=== PATIENT | male | born 1980 | race Caucasian/White ===

== ENCOUNTER 2020-03-17 14:21 | Emergency (ER) | payer OTHER ==
[2020-03-17] MEDS ORDERED: CHERRY SYRUP 10 ML UDC PO ONE (14:57)
[2020-03-17] MEDS ORDERED: KETOROLAC 60 MG/2 ML VIAL IM STA (14:57)
[2020-03-17] MEDS ORDERED: DEXAMETHASONE 10 MG/ML VIAL PO STA (14:57)
--- NOTE | 2020-03-17 15:04 | ED Physician Documentation ---
PD HPI HEADACHE - Stated complaint Stated Complaint: HEADACHE - Chief complaint Chief Complaint: General - History obtained from History obtained from: Patient - History of Present Illness Timing - onset: How many days ago (5) Timing - onset during: Rest Timing - duration: Days (5) Timing - details: Gradual onset, Still present Location: Front, Back, Left Quality: Throbbing Associated symptoms: No: Fever, Stiff neck, Nausea, Vomiting, Weakness, Numbn ess, Syncope, Seizure, Eye pain, Vision changes Improved by: Rest Worsened by: Light, Noise, Moving Contributing factors: No: Anticoagulated Similar symptoms before: No diagnosis Recently seen: Not recently seen - Additional information Additional information: 39 y/o male with a headache starting 5 days ago has been in to see the dentist last week to have a tooth pulled and he went to his doctor and had an MMR vaccine given. He has developed a headache on the left side more than the right and occipital radiating to the front. He has some ringing in his ears as well but no sore throat and no cough. He is on some amoxicillin after having the tooth pulled. He has not had vomiting or photo phobia and he has not had fever. Review of Systems Constitutional: denies: Fever Eyes: denies: Decreased vision Ears: reports: Tinnitus/ringing. denies: Ear pain Nose: reports: Congestion. denies: Rhinorrhea / runny nose Throat: denies: Sore throat Cardiac: denies: Chest pain / pressure, Palpitations Respiratory: denies: Dyspnea, Cough GI: denies: Abdominal Pain, Nausea, Vomiting : denies: Dysuria, Frequency Skin: denies: Rash Musculoskeletal: denies: Neck pain, Back pain, Extremity pain Neurologic: reports: Headache. denies: Generalized weakness, Focal weakness, Numbness, Head injury, LOC PD PAST MEDICAL HISTORY - Past Medical History Cardiovascular: None Respiratory: None Neuro: None Endocrine/Autoimmune: None GI: GERD : None HEENT: None Psych: None Musculoskeletal: None Derm: None - Past Surgical History Past Surgical History: Yes - Present Medications Home Medications: Ambulatory Orders Medication Instructions Recorded Confirmed Azithromycin [Zithromax] 250 mg PO DAILY #6 tablet 03/17/20 - Allergies Allergies/Adverse Reactions: Allergies Allergy/AdvReac Type Severity Reaction Status Date / Time Penicillins Allergy Rash Verified 03/17/20 14:31 - Social History Does the pt smoke?: No Smoking Status: Never smoker Does the pt drink ETOH?: No Does the pt have substance abuse?: No - Immunizations Immunizations are current?: Yes PD ED PE NORMAL - Vitals Vital signs reviewed: Yes (hypertensive) - General General: Alert and oriented X 3, No acute distress, Well developed/nourished - HEENT HEENT: Atraumatic, PERRL, EOMI, Other (both TM's are erythematous with distortion of the landmarks. The pharynx is without exudate. The serviced tooth site on the left upper incisor appears without inflamation. ) - Neck Neck: Supple, no meningeal sign, No bony TTP, Other (tenderness to the occiput at the insertion of the trapezius. ) - Cardiac Cardiac: RRR, No murmur - Respiratory Respiratory: No respiratory distress, Clear bilaterally - Abdomen Abdomen: Soft, Non tender - Back Back: No CVA TTP, No spinal TTP - Derm Derm: Normal color, Warm and dry, No rash - Extremities Extremities: No deformity, No edema - Neuro Neuro: Alert and oriented X 3, neurology tech 2-12 intact, No motor deficit, No sensory deficit, Normal speech Eye Opening: Spontaneous Motor: Obeys Commands Verbal: Oriented GCS Score: 15 - Psych Psych: Normal mood, Normal affect Results - Vitals Vitals: Vital Signs - 24 hr 03/17/20 14:27 Temperature 36.2 C L Heart Rate 84 Respiratory 16 Rate Blood Pressure 132/81 H O2 Saturation 97 Oxygen O2 Source Room air PD MEDICAL DECISION MAKING - ED course Complexity details: reviewed results, re-evaluated patient, considered differential, d/w patient ED course: 39 y/o male just back from the dentist on amoxicillin has developed a headache and has tenderness in the trapezius at the insertion to the occiput and otitis on exam. He is administered IM toradal and PO decadron and we will change his antibiotic to zithromax. Departure - Departure Disposition: 01 Home, Self Care Clinical Impression: Tension headache Otitis media Qualifiers: Otitis media type: suppurative Chronicity: acute Laterality: bilateral Recurrence: non-recurrent Spontaneous tympanic membrane rupture: without spontaneous rupture Qualified Code(s): H66.003 - Acute suppurative otitis media without spontaneous rupture of ear drum, bilateral Condition: Stable Instructions: ED Otitis Media Acute Adult, ED Headache Tension Follow-Up: MARCELO Bertrand [Provider Group] Prescriptions: Azithromycin [Zithromax] 250 mg PO DAILY #6 tablet
[2020-03-17 15:18] VITALS: BP 135/89
== END 2020-03-17 15:17 | disposition home or self-care (01) ==
LOC: ED 14:21
DX: G44.209 Tension-type headache, unspecified, not intractable (principal); H66.003 Acute suppurative otitis media without spontaneous rupture of ear drum, bilateral; M54.2 Cervicalgia
CPT/HCPCS: 96372; 99283; 99284; A9270

== ENCOUNTER 2020-10-27 03:11 | Emergency (ER) | payer OTHER ==
[2020-10-27] MEDS ORDERED: ASPIRIN CHEW 81 MG TABLET PO STA (03:36)
--- NOTE | 2020-10-27 03:42 | ED Physician Documentation ---
History of Present Illness - Stated complaint Stated Complaint: CHEST PX, L ARM NUMB, LEGS SWOLLEN - Chief complaint Chief Complaint: Cardiac - History obtained from History obtained from: Patient, Family (significant other) - Additonal information Additional information: 40yM with pmh gerd and sciatica, p/w chest pain gradual onset while driving from [place] around 1am. chest pain is constant, aching, currently 7/10, worse with pressing on it, moving the shoulder, and with deep breathing, located in the L pectoral region, radiating to the L axilla and shoulder, a/w tingling down the L arm. Patient was sleeping in the car on and off but denies sleeping on the arm. denies cough, shortness of breath, fever. Patient and his partner also endorse migratory joint swelling and pain over the past couple days. He had bilateral ankle swelling that has now gone down and now his bilateral wrists and ankle joints are hurting him, worse on the left versus right. He also is having subjective L hand swelling. denies calf pain or history of clots. He is however on testosterone supplementation. strong FH of gout. +smoker, +FH [place] <65 in grandmother, FH diabetes in both parents Review of Systems Ten Systems: 10 systems reviewed and negative Constitutional: denies: Fever, Chills Cardiac: reports: Chest pain / pressure. denies: Palpitations Respiratory: denies: Dyspnea, Cough GI: denies: Nausea Musculoskeletal: reports: Extremity pain, Joint pain, Extremity swelling PD PAST MEDICAL HISTORY - Past Medical History Past Medical History: Yes Cardiovascular: None Respiratory: None Neuro: None Endocrine/Autoimmune: None GI: GERD : Other HEENT: None Psych: None Musculoskeletal: None Derm: None Other Past Medical History: R hip sciatica, chronic - Past Surgical History Past Surgical History: Yes - Present Medications Home Medications: Ambulatory Orders Medication Instructions Recorded Confirmed Meloxicam [Mobic] 15 mg PO DAILY 10/27/20 10/27/20 Omeprazole [PriLOSEC] 20 mg PO DAILY 10/27/20 10/27/20 - Allergies Allergies/Adverse Reactions: Allergies Allergy/AdvReac Type Severity Reaction Status Date / Time Penicillins Allergy Rash Verified 10/27/20 03:26 - Social History Does the pt smoke?: Yes Smoking Status: Current every day smoker Does the pt drink ETOH?: No Does the pt have substance abuse?: No - Immunizations Immunizations are current?: Yes - POLST Patient has POLST: No PD ED PE NORMAL - Vitals Vital signs reviewed: Yes - General General: Alert and oriented X 3, No acute distress, Well developed/nourished - HEENT HEENT: Atraumatic, PERRL, EOMI - Neck Neck: Supple, no meningeal sign - Cardiac Cardiac: RRR - Respiratory Respiratory: No respiratory distress, Clear bilaterally - Abdomen Abdomen: Non tender, Non distended - Derm Derm: Normal color - Extremities Extremities: No deformity, Other (2+ BL radial and DP pulses. normal sensation and cap refill. minimal swelling discernable to wrist and MCP joints of L hand) - Neuro Neuro: Alert and oriented X 3 - Psych Psych: Normal mood, Normal affect Results - Vitals Vitals: Vital Signs - 24 hr 10/27/20 10/27/20 10/27/20 03:15 03:30 03:50 Temperature 36.5 C Heart Rate 71 68 70 Respiratory 18 18 18 Rate Blood Pressure 134/86 H 124/83 H 124/83 H O2 Saturation 100 98 97 10/27/20 10/27/20 10/27/20 04:24 04:30 05:00 Temperature Heart Rate 69 66 70 Respiratory 15 18 18 Rate Blood Pressure 113/83 H 110/77 116/74 O2 Saturation 98 97 97 Oxygen O2 Source Room air - Labs Labs: Laboratory Tests 10/27/20 10/27/20 10/27/20 03:34 03:34 03:34 WBC 6.0 RBC 4.89 Hgb 13.4 L Hct 39.1 L MCV 80.0 MCH 27.4 MCHC 34.3 RDW 12.3 Plt Count 190 MPV 11.2 Neut # (Auto) 3.2 Lymph # (Auto) 2.3 [place] # (Auto) 0.4 Eos # (Auto) 0.1 Baso # (Auto) 0.0 Absolute Nucleated RBC 0.00 Nucleated RBC % 0.0 ESR D-Dimer Sodium 136 Potassium 3.6 Chloride 100 L Carbon Dioxide 27 Anion Gap 9.0 BUN 18 Creatinine 1.0 Estimated GFR (MDRD) 84 L Glucose 110 H Uric Acid 5.8 Calcium 8.9 Total Bilirubin 0.4 AST 21 ALT 31 Alkaline Phosphatase 86 Troponin I High Sens 4.3 C-Reactive Protein 2.6 H Total Protein 6.8 Albumin 4.4 Globulin 2.4 Albumin/Globulin Ratio 1.8 Lipase 48 10/27/20 10/27/20 03:34 03:34 WBC RBC Hgb Hct MCV MCH MCHC RDW Plt Count MPV Neut # (Auto) Lymph # (Auto) [place] # (Auto) Eos # (Auto) Baso # (Auto) Absolute Nucleated RBC Nucleated RBC % ESR 5 D-Dimer TNP Sodium Potassium Chloride Carbon Dioxide Anion Gap BUN Creatinine Estimated GFR (MDRD) Glucose Uric Acid Calcium Total Bilirubin AST ALT Alkaline Phosphatase Troponin I High Sens C-Reactive Protein Total Protein Albumin Globulin Albumin/Globulin Ratio Lipase PD MEDICAL DECISION MAKING - ED course ED course: 40yM p/w atypical chest pain, found to have S1Q3T3 on ekg. He is resting comfortably in NAD, with normal vitals. BP is the same on both arms. will obtain trop, dimer to eval further, as well as inflammatory markers given his apparent migratory arthritis symptoms. 4:15am - laboratory was unable to run d-dimer since sample was extremely lipemic. Will obtain CTA chest to r/o PE. d/w patient. He states he has not seen a doctor in over a year and does not know the last time he had cholesterol tests. Pain resolved s/p aspirin. d/w the patient and his SO in regards to CT incidental nodule and otherwise negative findings. will send GC test since he has not had recent testing and we need to r/o gonorrheal arthritis. discussed that he should f/u with his pmd for possible stress testing and will definitely need lipid panel done. return precautions given. Departure - Departure Disposition: 01 Home, Self Care Clinical Impression: Chest pain, Joint pain Condition: Good Instructions: ED Chest Pain Atypical Unkn Cause Comments: You were seen in the emergency department for chest pain and joint pains. Your lab work is showing that your cholesterol is likely very high. You need to get repeat lipid testing with your primary doctor. Your CT showed and showed a lung nodule, which will require follow-up CT imaging. You should follow this up with your doctor as well. Finally, your EKG did not show signs of a heart attack, nor did your blood work, but you will likely need outpatient stress test to investigate your heart more. Return to the emergency department if you have any new or worsening symptoms, significant weight loss, unexplained symptoms or other concerns. Forms: Activity restrictions
[2020-10-27 03:44] LABS: BASOPHILS % (AUTO) 0.5 %; EOSINOPHILS # (AUTO) 0.1 10^3/uL (0.0-0.7); HCT - HEMATOCRIT 39.1 % (42.0-52.0); HGB - HEMOGLOBIN 13.4 g/dL (14.0-18.0); LYMPHOCYTES # (AUTO) 2.3 10^3/uL (1.5-3.5); LYMPHOCYTES % (AUTO) 37.5 %; MEAN CORPUSCULAR HEMOGLOBIN 27.4 pg (27.0-31.0); MEAN CORPUSCULAR HGB CONC 34.3 g/dL (32.0-36.0); MEAN PLATELET VOLUME 11.2 fL (7.4-11.4); MONOCYTES # (AUTO) 0.4 10^3/uL (0.0-1.0); MONOCYTES % (AUTO) 6.6 %; NEUTROPHILS # (AUTO) 3.2 10^3/uL (1.5-6.6); NEUTROPHILS % (AUTO) 53.1 %; PLT - PLATELET COUNT 190 10^3/uL (130-450); RED BLOOD COUNT 4.89 10^6/uL (4.70-6.10); RED CELL DISTRIBUTION WIDTH 12.3 % (12.0-15.0)
[2020-10-27] MEDS ORDERED: IOVERSOL 320 100 ML VIAL IVP ONE ×2 (04:21→04:59)
[2020-10-27 04:24] LABS: ALBUMIN 4.4 g/dL (3.2-5.5); ALBUMIN/GLOBULIN RATIO 1.8 (1.0-2.2); BILIRUBIN,TOTAL 0.4 mg/dL (0.2-1.0); CALCIUM 8.9 mg/dL (8.5-10.3); CRP - C-REACTIVE PROTEIN 2.6 mg/dL (0-1.0); POTASSIUM 3.6 mmol/L (3.5-5.0); TOTAL PROTEIN 6.8 g/dL (6.7-8.2); URIC ACID 5.8 mg/dL (2.6-7.2)
[2020-10-27 06:08] VITALS: BP 116/72
--- NOTE | 2020-10-27 08:18 | XRAY Report ---
PROCEDURE: Chest 1 View X-Ray INDICATIONS: Chest Pain TECHNIQUE: One view of the chest was acquired. COMPARISON: 06/07/2019 FINDINGS: Surgical changes and devices: None. Lungs and pleura: No pleural effusions or pneumothorax. Lungs are clear. Mediastinum: Mediastinal contours appear normal. Heart size is normal. Bones and chest wall: No suspicious bony lesions. Overlying soft tissues appear unremarkable. IMPRESSION: No acute cardiopulmonary abnormality Reviewed by: Jm Bustillo on 10/27/2020 8:16 AM PDT Approved by: Jm Bustillo on 10/27/2020 8:16 AM PDT Station ID: [id number]
--- NOTE | 2020-10-27 08:21 | CT Report ---
PROCEDURE: ANGIO CHEST W/WO INDICATIONS: pleuritic chest pain, on steroids CONTRAST: IV CONTRAST: Optiray 320 ml: 100 PO CONTRAST: *NO PO CONTRAST TECHNIQUE: After the administration of intravenous contrast, 2 mm thick sections acquired from the pulmonary api dmitriy to the posterior costophrenic angles. 3-dimensional maximum intensity projection (MIP) coronal a nd sagittal reformats were then acquired through the thorax. For radiation dose reduction, the follow ing was used: automated exposure control, adjustment of mA and/or kV according to patient size. COMPARISON: None FINDINGS: Image quality: Excellent. Pulmonary arteries: Pulmonary arteries are normal in size, and demonstrate no intraluminal filling d efects to suggest central pulmonary embolism. Lungs and pleura: Lungs are clear. No pleural effusions or pneumothorax. Central and peripheral ai rways are patent. Mediastinum: Heart size is normal, without pericardial effusion. No mediastinal or hilar adenopathy . Thoracic aorta is normal in caliber and enhancement. Esophagus is normal in caliber, without hiat al hernia. Bones and chest wall: No suspicious bony lesions. Ribs and thoracic spine appear intact throughout. No axillary or supraclavicular adenopathy. The thyroid is normal in size and there are no incident al findings. Abdomen: Visualized upper abdominal solid organs appear normal in the early arterial phase of enhanc ement. IMPRESSION: 1. No pulmonary embolism. 2. 5 mm nodule in the right middle lobe. This is an incidentally detected pulmonary nodule. Guideline s for the follow-up and management of indeterminate pulmonary nodules 4 to 6 mm in diameter in patien ts greater than 34 years old: In low risk patients, follow-up CT at 12 months; if unchanged no furthe r follow-up needed. In high-risk patients, initial follow-up CT at 6-12 months, then 18-24 months if no change. Reviewed by: Jm Bustillo on 10/27/2020 8:20 AM PDT Approved by: Jm Bustillo on 10/27/2020 8:20 AM PDT Station ID: [id number]
[2020-10-27 16:50] LABS: CHLAMYDIA TRACHOMATIS DNA NEGATIVE (NEGATIVE)
[2020-10-27 16:51] LABS: NEISSERIA GONORRHOEAE DNA NEGATIVE (NEGATIVE)
== END 2020-10-27 06:12 | disposition home or self-care (01) ==
LOC: ED 03:11
DX: R07.89 Other chest pain (principal); R94.31 Abnormal electrocardiogram [ECG] [EKG]; R91.1 Solitary pulmonary nodule; E78.00 Pure hypercholesterolemia, unspecified; M25.531 Pain in right wrist; M25.532 Pain in left wrist; M25.571 Pain in right ankle and joints of right foot; M25.572 Pain in left ankle and joints of left foot; M54.31 Sciatica, right side; K21.9 Gastro-esophageal reflux disease without esophagitis; F17.200 Nicotine dependence, unspecified, uncomplicated; Z82.49 Family history of ischemic heart disease and other diseases of the circulatory system; Z83.3 Family history of diabetes mellitus
CPT/HCPCS: 36415; 71045; 71275; 80053; 83690; 84484; 84550; 85025; 85651; 86140; 87491; 87591; 93005; 99284; A9270; Q9967; 85379; 87661

== ENCOUNTER 2020-12-11 08:03 | Outpatient (CLI) | payer OTHER ==
--- NOTE | 2020-12-11 16:48 | MRI Report ---
PROCEDURE: Lumbar Spine W/O INDICATIONS: LUMBAR RADICULOPATHY TECHNIQUE: Noncontrast sagittal T1 spin echo and T2 fast echo, sagittal STIR, axial T1 and T2 fast spin echo thr ough the lumbar spine. In cases with scoliosis, additional coronal T2 fast spin echo may be performe d. COMPARISON: None. FINDINGS: Image quality: Excellent. Alignment and Curvature: There is normal bony alignment. Bone Marrow: Marrow is of normal overall signal. No acute vertebral body compression fractures. Spinal Cord: Conus medullaris terminates at the L1 level. Visualized cord demonstrates normal signa l . There is an appearance of congenital spinal stenosis. Paraspinous Soft Tissues: No paravertebral masses. Discs: Moderate dessication is present at L2-3, minimal throughout the remainder of the lumbar spine . L1-L2: Minimal disc bulge with mild spinal stenosis. No foraminal narrowing. L2-L3: Mild disc bulge with moderate to severe spinal stenosis. Mild to moderate left and mild ri ght foraminal narrowing. Facet and ligamentum flavum hypertrophy are present. L3-L4: Mild disc bulge with moderate spinal stenosis. No foraminal narrowing. Mild facet and ligame ntum flavum hypertrophy. L4-L5: Mild disc bulge with moderate spinal stenosis. No foraminal narrowing. Facet and ligamentum flavum hypertrophy are present. L5-S1: No disc bulge is present. Mild spinal stenosis. No foraminal narrowing. Mild facet and ligam entum flavum hypertrophy. IMPRESSION: 1. Multilevel spinal stenosis most severe at L2-3 secondary to disc bulge with contributing effect of facet/ligament of flavum arthropathy. In addition, congenital spinal stenosis is noted. 2. Mild to moderate foraminal narrowing at L2-3 secondary to facet arthropathy. Reviewed by: Samia Upton MD on 12/11/2020 4:47 PM PDT Approved by: Samia Upton MD on 12/11/2020 4:47 PM PDT Station ID: [id number]
== END 2020-12-11 08:04 | disposition home or self-care (01) ==
LOC: DI 08:03
PROVIDERS: ATTEND Student in an Organized Health Care Education/Training Program
DX: M47.816 Spondylosis without myelopathy or radiculopathy, lumbar region (principal); M47.817 Spondylosis without myelopathy or radiculopathy, lumbosacral region; M48.061 Spinal stenosis, lumbar region without neurogenic claudication; M48.07 Spinal stenosis, lumbosacral region

== ENCOUNTER 2020-12-25 15:00 | Emergency (ER) | payer OTHER ==
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
[2020-12-25 16:03] VITALS: BP 123/82
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
== END 2020-12-25 16:02 | disposition home or self-care (01) ==
LOC: EDUNIT# → SUPCPDRO 15:00 → ED 15:00
DX: T76.11XA Adult physical abuse, suspected, initial encounter (principal); F17.200 Nicotine dependence, unspecified, uncomplicated
CPT/HCPCS: 99282; 99283